=== PATIENT | female | born 1960 | race Caucasian/White ===

== ENCOUNTER 2022-04-15 18:41 | Inpatient (IN) ==
[2022-04-15] MEDS ORDERED: 0.9 % SODIUM CHLORIDE 1,000 ML IV ONE ×3 (18:49→22:02)
[2022-04-15 19:08] LABS: POC Calcium, Ionized 1.09 (1.16-1.32); POC Creatinine 3.3 (0.6-1.2); POC Potassium 5.6 (3.3-5.1)
[2022-04-15 19:33] LABS: Basophils # (Auto) 0.02 K/mcL (0.00-0.30); Basophils % (Auto) 0.4 % (0.0-2.0); Eosinophils # (Auto) 0.18 K/mcL (0.00-0.70); Eosinophils % (Auto) 3.2 % (0.0-7.0); Hematocrit 33.1 % (34.1-44.9); Hemoglobin 9.8 g/dL (11.2-15.7); Lymphocytes # (Auto) 1.72 K/mcL (1.50-4.80); Lymphocytes % (Auto) 30.7 % (15.5-49.0); Mean Cell Volume 87.1 fL (80.0-100.0); Mean Corpuscular HGB Conc 29.6 g/dL (31.0-36.0); Monocytes # (Auto) 0.58 K/mcL (0.10-0.90); Monocytes % (Auto) 10.4 % (1.0-12.0); Neutrophils % (Auto) 54.2 % (38.0-78.0); Platelet Count 150 K/mcL (140-440); Red Cell Distribution Width 24.4 % (11.5-14.5); WBC 5.6 K/mcL (4.5-11.0)
--- NOTE | 2022-04-15 19:56 | Emergency Department Note ---
HPI General Chief complaint: Recheck/Abnormal Lab/Rx Stated complaint: Recheck Labs Time Seen by Provider: 04/15/22 18:49 Source: patient Mode of arrival: ambulatory Limitations: no limitations History of Present Illness HPI Narrative: Narrative: 61-year-old female presents to the emergency department with her outdoor emergency care technician for evaluation of abnormal labs. The patient had labs drawn by her primary care provider this morning and was told to come to the emergency department this evening because her kidney function was poor. Patient complains of feeling tired and cold. She felt dizzy when she was stood up earlier, but does not feel dizzy at rest. She is blind in both eyes. She is currently on day 7 of Bactrim for an infection in the left great toe. Related Data Home Medications Medication Instructions Recorded Confirmed benztropine 1 mg tablet 0.5 mg PO BID 03/19/17 08/13/21 divalproex 250 mg tablet,extended 1,000 mg PO QHS 03/19/17 08/13/21 release 24 hr levothyroxine 25 mcg tablet 25 mcg PO DAILY 03/19/17 08/13/21 lisinopril 5 mg tablet 5 mg PO DAILY 03/19/17 08/13/21 prazosin 2 mg capsule 4 mg PO HS 03/19/17 08/13/21 ziprasidone HCl 40 mg capsule 40 mg PO DAILY 03/19/17 08/13/21 atorvastatin 40 mg tablet (Lipitor) 40 mg PO QHS 02/15/21 08/13/21 carvedilol 6.25 mg tablet (Coreg) 6.25 mg PO BID 02/15/21 08/13/21 metformin 750 mg tablet,extended 750 mg PO BID 02/15/21 08/13/21 release 24 hr sennosides 8.6 mg tablet (Natural 8.6 mg PO QDAY 02/15/21 08/13/21 Senna Laxative) alendronate 70 mg tablet (Fosamax) 70 mg PO QWEEK 08/13/21 08/13/21 aspirin 81 mg tablet,delayed 81 mg PO QDAY 08/13/21 08/13/21 release cetirizine 10 mg tablet (Zyrtec) 10 mg PO QDAY PRN 08/13/21 08/13/21 cholecalciferol (vitamin D3) 125 125 mcg PO QDAY 08/13/21 08/13/21 mcg (5,000 unit) capsule clobetasol 0.05 % topical cream 1 applic topical QDAY 08/13/21 08/13/21 ipratropium bromide 18 1 puff inhalation Q6H 08/13/21 08/13/21 mcg/actuation aerosol inhaler mirtazapine 30 mg tablet (Remeron) 30 mg PO QDAY 08/13/21 08/13/21 neomycin-polymyxin B-dexameth eye 1 applic ophthalmic (eye) QHS 08/13/21 08/13/21 ointment omeprazole 40 mg capsule,delayed 40 mg PO QDAY 08/13/21 08/13/21 release promethazine 25 mg/5 mL oral syrup mg PO 08/13/21 08/13/21 ziprasidone HCl 20 mg capsule 40 mg PO QHS 08/13/21 08/13/21 Previous Rx's Medication Instructions Recorded omeprazole 20 mg tablet,delayed 40 mg PO DAILY #30 tabs 02/15/21 release furosemide 20 mg tablet (Lasix) 20 mg PO QAM #7 tabs 01/17/22 Allergies Allergy/AdvReac Type Severity Reaction Status Date / Time Penicillins AdvReac Intermediate shakes Verified 04/15/22 18:46 Review of Systems ROS ROS Narrative: Narrative: Constitutional: Reports chills and weight change (30 pound weight loss over the past several months); Denies fever or sweats Eyes: Reports as per HPI ENT ED: Denies ear pain, throat pain, congestion or rhinorrhea Cardiovascular: Denies chest pain, palpitations, orthopnea or edema Respiratory: Denies shortness of breath or cough Gastrointestinal: Reports other (Decreased appetite); Denies abdominal pain, nausea, vomiting, diarrhea or constipation Genitourinary: Denies dysuria, urgency or frequency Neurological: Denies headache Endocrine: Reports fatigue PFSH Narrative Patient History Narrative: Narrative: Medical/Surgical/Family History All Active Problems (Updated 04/15/22 @ 19:58 by Radha Graham PA-C) Congestive heart failure (CHF) (Acute) Dehydration (Acute) Chest pain (Acute) Bilateral leg edema (Acute) Upper abdominal pain (Acute) 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) URI (upper respiratory infection) (Acute) Left ankle sprain (Acute) Acidosis, lactic (Acute) Acute bronchitis, viral (Acute) Lower abdominal pain (Acute) Chest pain, non-cardiac (Acute) Anxiety about health (Acute) Acute right hip pain (Acute) Osteoarthritis of right hip (Acute) Urinary tract infection (Acute) Constipation (Acute) Strain of calf muscle (Acute) Otitis media (Acute) Viral illness (Acute) Cough (Acute) COVID-19 (Acute) Hypoxia (Acute) Tachycardia (Acute) Weakness (Acute) Acute pain of left lower extremity (Acute) Localized edema (Acute) Excessive gas (Acute) Abdominal pain (Acute) Hypothyroidism, acquired (Chronic) Microcephaly (Chronic) Developmental disability (Chronic) Blindness (Chronic) Cognitive developmental delay (Chronic) Diabetes mellitus, type 2 (Chronic) Insomnia (Chronic) Hyperlipidemia (Chronic) GERD (gastroesophageal reflux disease) (Chronic) Hypertension, essential (Chronic) Family history of CHF (congestive heart failure) (Chronic) Chest pain (Acute) Anxiety (Acute) Medical History Bilateral leg edema Blindness Cognitive developmental delay Developmental disability Diabetes mellitus, type 2 Family history of CHF (congestive heart failure) GERD (gastroesophageal reflux disease) Hyperlipidemia Hypertension, essential Hypothyroidism, acquired Insomnia Microcephaly Upper abdominal pain Urinary tract infection UTI (urinary tract infection) Social History Smoking Status: Never smoker Exam Narrative Narrative: Narrative: General Limitations: no limitations General appearance: Present lethargic (Patient's care provider states this is a little worse than usual) Head Head: Present atraumatic and normocephalic ENT ENT: Present mucous membranes dry Neck Neck: Present full ROM; Absent lymphadenopathy Respiratory Respiratory: Present normal lung sounds bilaterally Cardiovascular Cardiovascular: Present regular rate and normal heart sounds Adbominal Abdominal: Present soft and normal bowel sounds; Absent tenderness Extremities Extremities: Present other (Feet are pale and cool. Dorsalis pedis pulses are diminished, but heard with Doppler.) Back Back: Present normal inspection Neurological Neurological: Present oriented X3 Skin Skin: Present warm (WNL) and dry Course Vital Signs Vital signs: Vital Signs Temperature 97.0 F 04/15/22 18:43 Pulse Rate 58 L 04/15/22 18:43 Respiratory Rate 18 04/15/22 18:43 Blood Pressure 96/63 04/15/22 18:43 Pulse Oximetry (%) 95 04/15/22 18:43 Oxygen Delivery Method 04/15/22 18:43 Temperature 97.0 F 04/15/22 18:43 Pulse Rate 58 L 04/15/22 18:43 Respiratory Rate 18 04/15/22 18:43 Blood Pressure 96/63 04/15/22 18:43 Pulse Oximetry (%) 95 04/15/22 18:43 Oxygen Delivery Method 04/15/22 18:43 MDM MDM Narrative Medical decision making narrative: Narrative: Patient's labs are checked. She appears dehydrated with elevated BUN and creatinine. She is treated with IV fluids. Chem-8 will be repeated after IV fluids. I discussed the patient with Dr. Ayala who will review her follow-up labs. Please refer to his dictation for disposition regarding this patient. Lab Data Result diagrams: 04/15/22 18:56 Labs: Lab Results 04/15/22 04/15/22 Range/Units 18:56 19:05 WBC 5.6 (4.5-11.0) K/mcL RBC 3.80 (3.59-5.38) M/mcL Hgb 9.8 L (11.2-15.7) g/dL Hct 33.1 L (34.1-44.9) % POC Hct 30.0 L (36-48) MCV 87.1 (80.0-100.0) fL MCH 25.8 L (26.0-34.0) pg MCHC 29.6 L (31.0-36.0) g/dL RDW 24.4 H (11.5-14.5) % Plt Count 150 (140-440) K/mcL MPV 11.0 H (7.4-10.4) fL Immature Gran % (Auto) 1.1 H (0.0-0.5) % Neut % (Auto) 54.2 (38.0-78.0) % Lymph % (Auto) 30.7 (15.5-49.0) % [place] % (Auto) 10.4 (1.0-12.0) % Eos % (Auto) 3.2 (0.0-7.0) % Baso % (Auto) 0.4 (0.0-2.0) % Lymph # (Auto) 1.72 (1.50-4.80) K/mcL [place] # (Auto) 0.58 (0.10-0.90) K/mcL Eos # (Auto) 0.18 (0.00-0.70) K/mcL Baso # (Auto) 0.02 (0.00-0.30) K/mcL Immature Gran # 0.06 H (0.00-0.05) K/mcl Absolute Neutrophils 3.10 (1.80-8.00) K/mcL POC Sodium 135 (133-145) POC Potassium 5.6 H (3.3-5.1) POC Chloride 107 (96-108) POC Total CO2 19.0 L (22-30) POC BUN 69 H (6-20) POC Creatinine 3.3 H (0.6-1.2) POC Glucose 67 L (70-105) POC WB Ioniz Calcium 1.09 L (1.16-1.32) Discharge Plan Patient/Caregiver Discharge Instructions Pt seen by REHABILITATION CENTER MANAGER/PA only: No Clinical Impression: Dehydration Patient Disposition: Still a Patient Follow up with: Marie Mclaughlin ARNP [Primary Care Provider] - Prescriptions: No Action omeprazole 20 mg tablet,delayed release (DR/EC) 40 mg PO DAILY Qty: 30 0RF atorvastatin [Lipitor] 40 mg tablet 40 mg PO QHS metformin 750 mg tablet extended release 24 hr 750 mg PO BID carvedilol [Coreg] 6.25 mg tablet 6.25 mg PO BID Rx Instructions: must administer with a meal/food sennosides [Natural Senna Laxative] 8.6 mg tablet 8.6 mg PO QDAY alendronate [Fosamax] 70 mg tablet 70 mg PO QWEEK omeprazole 40 mg capsule,delayed release(DR/EC) 40 mg PO QDAY aspirin 81 mg tablet,delayed release (DR/EC) 81 mg PO QDAY cetirizine [Zyrtec] 10 mg tablet 10 mg PO QDAY PRN neomycin-polymyxin B-dexameth Ointment 1 applic ophthalmic (eye) QHS cholecalciferol (vitamin D3) 125 mcg (5,000 unit) capsule 125 mcg PO QDAY mirtazapine [Remeron] 30 mg tablet 30 mg PO QDAY clobetasol 0.05 % cream 1 applic topical QDAY ipratropium bromide 18 mcg/actuation aerosol 1 puff inhalation Q6H promethazine 25 mg/5 mL syrup PO lisinopril 5 MG tablet 5 mg PO DAILY levothyroxine 25 MCG tablet 25 mcg PO DAILY benztropine 1 MG tablet 0.5 mg PO BID ziprasidone HCl 40 MG capsule 40 mg PO DAILY prazosin 2 MG capsule 4 mg PO HS divalproex 250 MG tablet extended release 24 hr 1,000 mg PO QHS ziprasidone HCl 20 mg capsule 40 mg PO QHS furosemide [Lasix] 20 mg tablet 20 mg PO QAM Qty: 7 0RF
[2022-04-15 20:37] LABS: POC Calcium, Ionized 1.03 (1.16-1.32); POC Creatinine 3.1 (0.6-1.2)
--- NOTE | 2022-04-15 20:45 | Emergency Department Note ---
Course Course Course Narrative: Patient was evaluated for generalized weakness and abnormal labs. Patient was found to be in acute kidney injury with hyperkalemia. Most likely secondary to dehydration. Patient was given 2 bags of IV fluids and her creatinine did improve from 3.3 down to 2.8 and her potassium also came down a little bit. Patient still appears dehydrated. Believe patient will benefit from admission to the hospital with IV rehydration and see how her kidney function performs. Case was discussed with hospitalist who has agreed to admit the patient. Consultations Consultation #1: Request for hospitalist consultation requested Time: 21:49 Consultation #2: Case discussed with hospitalist who has agreed to admit the patient for acute kidney injury secondary to dehydration Time: 21:56 Vital Signs Vital signs: Vital Signs Temperature 97.0 F 04/15/22 18:43 Pulse Rate 58 L 04/15/22 18:43 Respiratory Rate 18 04/15/22 18:43 Blood Pressure 96/63 04/15/22 18:43 Pulse Oximetry (%) 95 04/15/22 18:43 Oxygen Delivery Method 04/15/22 18:43 Temperature 97.0 F 04/15/22 18:43 Pulse Rate 81 04/15/22 20:54 Respiratory Rate 18 04/15/22 18:43 Blood Pressure 83/53 04/15/22 20:32 Pulse Oximetry (%) 99 04/15/22 20:54 Oxygen Delivery Method 04/15/22 18:43 [facility] MDM Narrative Medical decision making narrative: Narrative: Differential Diagnosis Differential Diagnosis: Dehydration, acute kidney injury Medical Records Medical records reviewed: Yes I reviewed the patient's medical records. Lab Data Lab results reviewed: Yes I reviewed the patient's lab results. Result diagrams: 04/15/22 18:56 Labs: Lab Results 04/15/22 04/15/22 04/15/22 Range/Units 18:56 19:05 20:36 WBC 5.6 (4.5-11.0) K/mcL RBC 3.80 (3.59-5.38) M/mcL Hgb 9.8 L (11.2-15.7) g/dL Hct 33.1 L (34.1-44.9) % POC Hct 30.0 L 25.0 L (36-48) MCV 87.1 (80.0-100.0) fL MCH 25.8 L (26.0-34.0) pg MCHC 29.6 L (31.0-36.0) g/dL RDW 24.4 H (11.5-14.5) % Plt Count 150 (140-440) K/mcL MPV 11.0 H (7.4-10.4) fL Immature Gran % (Auto) 1.1 H (0.0-0.5) % Neut % (Auto) 54.2 (38.0-78.0) % Lymph % (Auto) 30.7 (15.5-49.0) % [place] % (Auto) 10.4 (1.0-12.0) % Eos % (Auto) 3.2 (0.0-7.0) % Baso % (Auto) 0.4 (0.0-2.0) % Lymph # (Auto) 1.72 (1.50-4.80) K/mcL [place] # (Auto) 0.58 (0.10-0.90) K/mcL Eos # (Auto) 0.18 (0.00-0.70) K/mcL Baso # (Auto) 0.02 (0.00-0.30) K/mcL Immature Gran # 0.06 H (0.00-0.05) K/mcl Absolute Neutrophils 3.10 (1.80-8.00) K/mcL POC Sodium 135 136 (133-145) POC Potassium 5.6 H 5.0 (3.3-5.1) POC Chloride 107 109 H (96-108) POC Total CO2 19.0 L 17.0 L (22-30) POC BUN 69 H 66 H (6-20) POC Creatinine 3.3 H 3.1 H (0.6-1.2) POC Glucose 67 L 60 L (70-105) POC WB Ioniz Calcium 1.09 L 1.03 L (1.16-1.32) 04/15/22 Range/Units 21:43 WBC (4.5-11.0) K/mcL RBC (3.59-5.38) M/mcL Hgb (11.2-15.7) g/dL Hct (34.1-44.9) % POC Hct 26.0 L (36-48) MCV (80.0-100.0) fL MCH (26.0-34.0) pg MCHC (31.0-36.0) g/dL RDW (11.5-14.5) % Plt Count (140-440) K/mcL MPV (7.4-10.4) fL Immature Gran % (Auto) (0.0-0.5) % Neut % (Auto) (38.0-78.0) % Lymph % (Auto) (15.5-49.0) % [place] % (Auto) (1.0-12.0) % Eos % (Auto) (0.0-7.0) % Baso % (Auto) (0.0-2.0) % Lymph # (Auto) (1.50-4.80) K/mcL [place] # (Auto) (0.10-0.90) K/mcL Eos # (Auto) (0.00-0.70) K/mcL Baso # (Auto) (0.00-0.30) K/mcL Immature Gran # (0.00-0.05) K/mcl Absolute Neutrophils (1.80-8.00) K/mcL POC Sodium 137 (133-145) POC Potassium 5.4 H (3.3-5.1) POC Chloride 110 H (96-108) POC Total CO2 18.0 L (22-30) POC BUN 64 H (6-20) POC Creatinine 2.8 H (0.6-1.2) POC Glucose 83 (70-105) POC WB Ioniz Calcium 1.07 L (1.16-1.32) EKG Data EKG #1: EKG attestation: Yes I reviewed and interpreted this EKG. EKG shows normal: sinus rhythm Rate: normal (84) Rhythm: NSR [place]/QRS: normal Heart block present: None ST segment elevation in: None ST segment depression in: None QTc: normal QRS morphology: Present normal Interpretation: no acute changes Discharge Plan Patient/Caregiver Discharge Instructions Pt seen by DRAWBRIDGE OPERATOR/PA only: No Clinical Impression: Acute kidney injury, Dehydration, Acute hyperkalemia Patient Disposition: Xfer As Inpt ([facility]) Condition: Fair Follow up with: Marie Mclaughlin ARNP [Primary Care Provider] - Prescriptions: No Action omeprazole 20 mg tablet,delayed release (DR/EC) 40 mg PO DAILY Qty: 30 0RF atorvastatin [Lipitor] 40 mg tablet 40 mg PO QHS metformin 750 mg tablet extended release 24 hr 750 mg PO BID carvedilol [Coreg] 6.25 mg tablet 6.25 mg PO BID Rx Instructions: must administer with a meal/food sennosides [Natural Senna Laxative] 8.6 mg tablet 8.6 mg PO QDAY alendronate [Fosamax] 70 mg tablet 70 mg PO QWEEK omeprazole 40 mg capsule,delayed release(DR/EC) 40 mg PO QDAY aspirin 81 mg tablet,delayed release (DR/EC) 81 mg PO QDAY cetirizine [Zyrtec] 10 mg tablet 10 mg PO QDAY PRN neomycin-polymyxin B-dexameth Ointment 1 applic ophthalmic (eye) QHS cholecalciferol (vitamin D3) 125 mcg (5,000 unit) capsule 125 mcg PO QDAY mirtazapine [Remeron] 30 mg tablet 30 mg PO QDAY clobetasol 0.05 % cream 1 applic topical QDAY ipratropium bromide 18 mcg/actuation aerosol 1 puff inhalation Q6H promethazine 25 mg/5 mL syrup PO lisinopril 5 MG tablet 5 mg PO DAILY levothyroxine 25 MCG tablet 25 mcg PO DAILY benztropine 1 MG tablet 0.5 mg PO BID ziprasidone HCl 40 MG capsule 40 mg PO DAILY prazosin 2 MG capsule 4 mg PO HS divalproex 250 MG tablet extended release 24 hr 1,000 mg PO QHS ziprasidone HCl 20 mg capsule 40 mg PO QHS furosemide [Lasix] 20 mg tablet 20 mg PO QAM Qty: 7 0RF
[2022-04-15 21:47] LABS: POC Calcium, Ionized 1.07 (1.16-1.32); POC Creatinine 2.8 (0.6-1.2); POC Potassium 5.4 (3.3-5.1)
[2022-04-15] MEDS ORDERED: ONDANSETRON 4 MG/2 ML VIAL IV PRN (23:19)
[2022-04-15] MEDS ORDERED: ACETAMINOPHEN 325 MG TABLET PO PRN (23:19)
[2022-04-15] MEDS: LACTATED RINGERS 1,000 ML IV SCH (23:22)
[2022-04-16] MEDS: 0.9 % SODIUM CHLORIDE 10 ML SYRINGE IV SCH ×2 (04:54→12:11)
[2022-04-16 07:01] LABS: Blood Urea Nitrogen 53 mg/dL (6-20); Calcium 7.8 mg/dL (8.6-10.4); Carbon Dioxide 20 mmol/L (22-30); Chloride 110 mmol/L (96-108); Glomerular Filtration Rate 21; Glucose 82 mg/dL (70-105); Phosphorous 2.9 mg/dL (2.5-4.5)
[2022-04-16] MEDS: DOCUSATE SODIUM 100 MG CAPSULE PO SCH ×2 (10:03→21:15)
[2022-04-16] MEDS: HEPARIN 5,000 UNIT/ML VIAL SQ SCH ×2 (10:03→21:16)
--- NOTE | 2022-04-16 11:03 | Internal Med History&Physical ---
HPI History of Present Illness Patient information: Note initiated : 04/16/22 at 10:57 am Service Date, if different from initiated Date: [] Patient: Antonia Leo a 61 y/o F admitted on 04/15/22 for Recheck Labs. Chief Complaint: [Abnormal labs] Chief complaint: CRHISTIAN History of present illness: Ms. Leo is a 61 year old F with a complex past medical history significant for microcephaly, blindness, cognitive disability, schizophrenia, DM2, congestive heart failure, hypothyroidism, and hypertension who presents to the hospital with abnormal labs. It was suggested she go to the ER for further management and evaluation. The patient overall is a poor historian and history is mainly obtained secondhand from staff and from chart review. The patient was recently started on Bactrim for suspected UTI, is on lisinopril, and multiple diuretics at home. Unfortunately she has now developed acute kidney injury where she was found to have a creatinine of 2.9. Her baseline creatinine is close to 0.9. The offending agents have been discontinued and held. She has been gently hydrated with IV fluids and the hospitalist service has been asked admit the patient for further management and evaluation of her drug-induced acute kidney injury. 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) URI (upper respiratory infection) (Acute) Left ankle sprain (Acute) Acidosis, lactic (Acute) Acute bronchitis, viral (Acute) Lower abdominal pain (Acute) Chest pain, non-cardiac (Acute) Anxiety about health (Acute) Acute right hip pain (Acute) Osteoarthritis of right hip (Acute) Urinary tract infection (Acute) Constipation (Acute) Strain of calf muscle (Acute) Otitis media (Acute) Viral illness (Acute) Cough (Acute) COVID-19 (Acute) Hypoxia (Acute) Tachycardia (Acute) Weakness (Acute) Acute pain of left lower extremity (Acute) Localized edema (Acute) Excessive gas (Acute) Abdominal pain (Acute) Hypothyroidism, acquired (Chronic) Microcephaly (Chronic) Developmental disability (Chronic) Blindness (Chronic) Cognitive developmental delay (Chronic) Diabetes mellitus, type 2 (Chronic) Insomnia (Chronic) Hyperlipidemia (Chronic) GERD (gastroesophageal reflux disease) (Chronic) Hypertension, essential (Chronic) Family history of CHF (congestive heart failure) (Chronic) Chest pain (Acute) Anxiety (Acute) Medical History Bilateral leg edema Blindness Cognitive developmental delay Developmental disability Diabetes mellitus, type 2 Family history of CHF (congestive heart failure) GERD (gastroesophageal reflux disease) Hyperlipidemia Hypertension, essential Hypothyroidism, acquired Insomnia Microcephaly Upper abdominal pain Urinary tract infection UTI (urinary tract infection) MEDS/ALLERGIES Home Medications and Allergies Home Medications Medication Instructions Recorded Confirmed Type benztropine 1 mg tablet 0.5 mg PO BID 03/19/17 04/15/22 History divalproex 250 mg tablet,extended 1,000 mg PO QHS 03/19/17 04/15/22 History release 24 hr levothyroxine 25 mcg tablet 25 mcg PO DAILY 03/19/17 04/15/22 History lisinopril 5 mg tablet 5 mg PO DAILY 03/19/17 04/15/22 History prazosin 2 mg capsule 2 mg PO HS 03/19/17 04/15/22 History ziprasidone HCl 40 mg capsule 40 mg PO DAILY 03/19/17 04/15/22 History atorvastatin 40 mg tablet (Lipitor) 40 mg PO QHS 02/15/21 04/15/22 History carvedilol 6.25 mg tablet (Coreg) 12.5 mg PO BID 02/15/21 04/15/22 History metformin 750 mg tablet,extended 750 mg PO QAM 02/15/21 04/15/22 History release 24 hr omeprazole 20 mg tablet,delayed 40 mg PO DAILY #30 tabs 02/15/21 04/15/22 Rx release sennosides 8.6 mg tablet (Natural 8.6 mg PO Q2D 02/15/21 04/15/22 History Senna Laxative) alendronate 70 mg tablet (Fosamax) 70 mg PO QWEEK 08/13/21 04/15/22 History aspirin 81 mg tablet,delayed 81 mg PO QDAY 08/13/21 04/15/22 History release cetirizine 10 mg tablet (Zyrtec) 10 mg PO QDAY 08/13/21 04/15/22 History cholecalciferol (vitamin D3) 125 125 mcg PO QDAY 08/13/21 04/15/22 History mcg (5,000 unit) capsule clobetasol 0.05 % topical cream 1 applic topical QDAY 08/13/21 04/15/22 History mirtazapine 30 mg tablet (Remeron) 30 mg PO QDAY 08/13/21 04/15/22 History ziprasidone HCl 20 mg capsule 20 mg PO QHS 08/13/21 04/15/22 History furosemide 20 mg tablet (Lasix) 20 mg PO QAM #7 tabs 01/17/22 04/15/22 Rx colchicine 0.6 mg tablet 1 tab PO QDAY 04/15/22 04/15/22 History ferrous sulfate 325 mg (65 mg 1 tab PO QDAY 04/15/22 04/15/22 History iron) tablet,delayed release spironolactone 25 mg tablet 0.5 tab PO QDAY 04/15/22 04/15/22 History Allergies Allergy/AdvReac Type Severity Reaction Status Date / Time Penicillins AdvReac Intermediate shakes Verified 04/15/22 18:46 EXAM Constitutional Vitals: Temp Pulse Resp BP Pulse Ox O2 Del Method 96.6 F L 84 20 107/72 89 L 04/16/22 08:00 04/16/22 08:00 04/16/22 08:00 04/16/22 08:00 04/16/22 08:00 04/16/22 08:50 General appearance: average body habitus Head Head exam: Present atraumatic, normal inspection and normocephalic Eye Eye exam: Present EOMI, normal appearance and PERRL; Absent conjunctival injection ENT ENT exam: Present normal exam; Absent mucous membranes dry Neck Neck exam: Present full ROM; Absent lymphadenopathy Respiratory Respiratory exam: Present normal respiratory exam and CTAB; Absent decreased breath sounds, respiratory distress or wheezes Cardiovascular Cardiovascular exam: Present normal rate and rhythm and RRR; Absent JVD GI/Abdominal GI/Abdominal exam: Present normal bowel sounds and soft; Absent diminished bowel sounds, distended, guarding, mass, rebound or tenderness Neurological Exam Neurological exam: Present alert, CN II-XII intact and oriented X3 Psychiatric Psychiatric exam: Present normal affect and normal mood Skin Skin exam: Present intact and warm; Absent erythema, pallor, petechiae or rash DATA Data Completed and Pending Labs: Labs from last 24 hours 04/16/22 04/15/22 04/15/22 05:31 21:43 20:36 WBC RBC Hgb Hct POC Hct 26.0 L 25.0 L MCV MCH MCHC RDW Plt Count MPV Immature Gran % (Auto) Neut % (Auto) Lymph % (Auto) [place] % (Auto) Eos % (Auto) Baso % (Auto) Lymph # (Auto) [place] # (Auto) Eos # (Auto) Baso # (Auto) Immature Gran # Absolute Neutrophils POC Sodium 137 136 Sodium 140 POC Potassium 5.4 H 5.0 Potassium 4.6 POC Chloride 110 H 109 H Chloride 110 H Carbon Dioxide 20 L POC Total CO2 18.0 L 17.0 L Anion Gap 10.0 POC BUN 64 H 66 H BUN 53 H Creatinine 2.4 H POC Creatinine 2.8 H 3.1 H GFR Calculation 21 Glucose 82 POC Glucose 83 60 L Calcium 7.8 L POC WB Ioniz Calcium 1.07 L 1.03 L Phosphorus 2.9 Magnesium 1.7 04/15/22 04/15/22 19:05 18:56 WBC 5.6 RBC 3.80 Hgb 9.8 L Hct 33.1 L POC Hct 30.0 L MCV 87.1 MCH 25.8 L MCHC 29.6 L RDW 24.4 H Plt Count 150 MPV 11.0 H Immature Gran % (Auto) 1.1 H Neut % (Auto) 54.2 Lymph % (Auto) 30.7 [place] % (Auto) 10.4 Eos % (Auto) 3.2 Baso % (Auto) 0.4 Lymph # (Auto) 1.72 [place] # (Auto) 0.58 Eos # (Auto) 0.18 Baso # (Auto) 0.02 Immature Gran # 0.06 H Absolute Neutrophils 3.10 POC Sodium 135 Sodium POC Potassium 5.6 H Potassium POC Chloride 107 Chloride Carbon Dioxide POC Total CO2 19.0 L Anion Gap POC BUN 69 H BUN Creatinine POC Creatinine 3.3 H GFR Calculation Glucose POC Glucose 67 L Calcium POC WB Ioniz Calcium 1.09 L Phosphorus Magnesium A/P Assessment and plan (1) Acute kidney injury: Status: Acute (2) Congestive heart failure (CHF): Status: Acute (3) Acute hyperkalemia: Status: Acute (4) Developmental disability: Status: Chronic (5) Diabetes mellitus, type 2: Status: Chronic (6) Blindness: Status: Chronic Narrative A/P Narrative: The patient likely developed acute interstitial nephritis from her Bactrim that was exacerbated by her underlying diuretics and lisinopril. We will continue to hydrate her with IV fluids and monitor serial BMP daily. Her home medication list has been reconciled and restarted today. PT will work with the patient this morning. Social work and case management will work on disposition as she lives in the community home. Time Spent With Patient Time: Total time spent is greater than 50% in coordination of care (as documented) at patient's floor/unit and/or counseling patient: Total time spent with greater than 50% in coordination of care (as documented) at patient's floor/unit and/or counseling patient:: Greater than 70 minutes QUALITY VTE Deep Vein Thrombosis/Pulmonary Embolism Present on Admission: No
[2022-04-16] MEDS: LACTATED RINGERS 1,000 ML IV SCH ×2 (12:10→22:44)
[2022-04-16] MEDS ORDERED: LACTATED RINGERS 500 ML IV ONE (13:07)
--- NOTE | 2022-04-16 14:00 | Internal Med Progress Note ---
SUBJECTIVE Subjective Patient information: Note initiated : 04/16/22 at 1:53 pm Service Date, if different from initiated Date: [] Patient: Antonia Leo a 61 y/o F admitted on 04/15/22 for Recheck Labs. Chief Complaint: [] Interval history: History of present illness: Ms. Leo is a 61 year old F with a complex past medical history significant for microcephaly, blindness, cognitive disability, schizophrenia, DM2, congestive heart failure, hypothyroidism, and hypertension who presents to the hospital with abnormal labs. It was suggested she go to the ER for further management and evaluation. The patient overall is a poor historian and history is mainly obtained secondhand from staff and from chart review. The patient was recently started on Bactrim for suspected UTI, is on lisinopril, and multiple diuretics at home. Unfortunately she has now developed acute kidney injury where she was found to have a creatinine of 2.9. Her baseline creatinine is close to 0.9. The offending agents have been discontinued and held. She has been gently hydrated with IV fluids and the hospitalist service has been asked admit the patient for further management and evaluation of her drug-induced acute kidney injury. 04/17 Constitutional Vitals: Vital Signs Temp Pulse Resp BP Pulse Ox O2 Del Method 97.6 F 100 H 20 82/48 93 04/16/22 11:52 04/16/22 11:52 04/16/22 11:52 04/16/22 13:01 04/16/22 11:52 04/16/22 11:52 Period Temp Pulse Resp BP Sys/Duff Pulse Ox O2 Del Method O2 Flow Rate Last 24 Hr 96.4 F-97.6 F 58-100 -22 70-107/48-72 89-99 Room Air-Room Air Intake and Output 04/15/22 04/16/22 04/16/22 21:59 05:59 13:59 Intake Total 19990 1080 Output Total 500 Balance 1999 1050 580 Weight 61.689 kg 71.985 kg Intake & Output: Intake & Output 04/15/22 04/16/22 04/16/22 21:59 05:59 13:59 Intake Total 1999 1050 1080 Output Total 500 Balance 1999 1050 580 Weight 61.689 kg 71.985 kg Intake: IV 1999 1000 960 Sodium Chloride 0.9% 1,000 ml @ 2000 1000 Wide Open IV BOL[facility] ONE Rx#: [id number] Lactated Ringers 1,000 ml @ 75 960 mls/hr IV .[id number] [facility] Rx#: [id number] Oral 50 120 Output: Void Amount 500 Other: Meal Breakfast Percent of Meal Consumed 75% Feeding Ability Assist with Tray Set Up Urine Appearance Clear Urine Color Bright Yellow Exam: General: Alert, Awake, No acute Distress Eyes/N/T: EOMI, Head/Neck: neck supple, CV: RRR, No murmurs, Pulm: Clear b/l, no wheezing/rhonchi/rales Abd: soft, nontender, +BS x4 Ext: no clubbing/cyanosis/edema Neuro: Alert, no focal deficits, moves all extremities, Skin: warm/dry OBJ DATA Labs CBC & Chem 7: 04/15/22 18:56 04/16/22 05:31 Labs: Abnormal Lab Results 04/16/22 04/15/22 04/15/22 05:31 21:43 20:36 Hgb Hct POC Hct 26.0 L 25.0 L MCH MCHC RDW MPV Immature Gran % (Auto) Immature Gran # POC Potassium 5.4 H POC Chloride 110 H 109 H Chloride 110 H Carbon Dioxide 20 L POC Total CO2 18.0 L 17.0 L POC BUN 64 H 66 H BUN 53 H Creatinine 2.4 H POC Creatinine 2.8 H 3.1 H POC Glucose 60 L Calcium 7.8 L POC WB Ioniz Calcium 1.07 L 1.03 L 04/15/22 04/15/22 19:05 18:56 Hgb 9.8 L Hct 33.1 L POC Hct 30.0 L MCH 25.8 L MCHC 29.6 L RDW 24.4 H MPV 11.0 H Immature Gran % (Auto) 1.1 H Immature Gran # 0.06 H POC Potassium 5.6 H POC Chloride Chloride Carbon Dioxide POC Total CO2 19.0 L POC BUN 69 H BUN Creatinine POC Creatinine 3.3 H POC Glucose 67 L Calcium POC WB Ioniz Calcium 1.09 L Meds: Medications Acetaminophen (Acetaminophen 325 Mg Tablet) 650 mg PO Q6HP PRN; Protocol PRN Reason: Per Pain Protocol/Fever > 101 Aspirin (Aspirin 81 Mg Tab.Chew) 81 mg PO DAILY [facility] Atorvastatin Calcium (Atorvastatin 40 Mg Tablet) 40 mg PO QHS [facility] Benztropine Mesylate (Benztropine 1 Mg Tablet) 0.5 mg PO BID [facility] Carvedilol (Carvedilol 12.5 Mg Tablet) 12.5 mg PO BIDCC [facility] Clobetasol Propionate (Clobetasol Propionate 1 Dose Tube) 1 dose TOPICAL QDAY [facility] Diagnostic Test (Pha) (Accu-Chek 1 Each Strip) 1 each FS ACHS [facility] Last Admin: 04/16/22 12:10 Dose: 1 each Divalproex Sodium (Divalproex Sodium 250 Mg Tablet) 1,000 mg PO QHS [facility] Docusate Sodium (Docusate Sodium 100 Mg Capsule) 100 mg PO BID [facility] Last Admin: 04/16/22 10:03 Dose: 100 mg Heparin Sodium (Porcine) (Heparin 5,000 Unit/Ml Vial) 5,000 unit SQ Q12 [facility] Last Admin: 04/16/22 10:03 Dose: 5,000 unit Lactated Ringer's (Lactated Ringers) 1,000 mls @ 75 mls/hr IV .[id number] [facility] Last Admin: 04/16/22 12:10 Dose: 75 mls/hr Levothyroxine Sodium (Levothyroxine 25 Mcg Tablet) 25 mcg PO QAMAC [facility] Mirtazapine (Mirtazapine 15 Mg Tablet) 30 mg PO HS [facility] Omeprazole (Omeprazole 20 Mg Capsule) 40 mg PO ACB [facility] Ondansetron HCl (Ondansetron 4 Mg/2 Ml Vial) 4 mg IV Q6HP PRN PRN Reason: Nausea And Vomiting Ziprasidone Hcl 20 (Mg Capsule) 1 dose PO QHS [facility] Ziprasidone Hcl 40 (Mg Capsule) 1 dose PO DAILY [facility] Prazosin HCl (Prazosin 1 Mg Capsule) 2 mg PO HS [facility] Senna (Sennosides 1 Tablet) 2 tab PO HS [facility] Sodium Chloride (0.9 % Sodium Chloride 10 Ml Syringe) 10 ml IV Q8 [facility] Last Admin: 04/16/22 12:11 Dose: Not Given A/P Narrative A/P Narrative: A: *CHRISTIAN on CKD II: likely 2/2 bactrim compounded by ACEI/Diuretics -improving *Hyperkalemia: resolved *Volume depletion: *HTN/HLD: on BB/ACEI, lasix/aldactone *DM 2: *Cognitive impairment/blindness/microcephaly/developmental disability: *Schizophrenia: *Anemia: *Hypothyroidism: *GERD: P: -IVF -hold ACEI/diuretics, d/c bactrim -monitor UOP -SSI, hold metformin -PT/OT -ppx:heparin /Home PPI Time Spent With Patient Time: Total time spent is greater than 50% in coordination of care (as documented) at patient's floor/unit and/or counseling patient: QUALITY VTE Deep Vein Thrombosis/Pulmonary Embolism Present on Admission: No
[2022-04-16 15:15] LABS: Appearance,Urine Clear (Clear); Bilirubin,Urine Negative (Negative); Color,Urine Yellow; Culture Indicated,Urine No; Glucose,Urine (UA) Negative (Negative); Ketones,Urine Negative (Negative); Leukocyte Esterase,Urine Negative /uL (Negative); Nitrate,Urine Negative (Negative); Protein,Urine Negative (Negative); Urine Blood Negative ery/mcL (Negative); Urobilinogen,Urine Normal
[2022-04-16] MEDS: CARVEDILOL 12.5 MG TABLET PO SCH (16:47)
[2022-04-16] MEDS: BENZTROPINE 1 MG TABLET PO SCH (21:15)
[2022-04-16] MEDS: MIRTAZAPINE 15 MG TABLET PO SCH (21:15)
[2022-04-16] MEDS: SENNOSIDES 1 TABLET PO SCH (21:15)
[2022-04-16] MEDS: ATORVASTATIN 40 MG TABLET PO SCH (21:15)
[2022-04-16] MEDS: DIVALPROEX SODIUM 250 MG TABLET PO SCH (21:15)
[2022-04-16] MEDS: PRAZOSIN 1 MG CAPSULE PO SCH (21:16)
[2022-04-17] MEDS: 0.9 % SODIUM CHLORIDE 10 ML SYRINGE IV SCH ×4 (01:09→22:05)
[2022-04-17] MEDS: LACTATED RINGERS 1,000 ML IV SCH (04:05)
[2022-04-17 06:32] LABS: Basophils # (Auto) 0.01 K/mcL (0.00-0.30); Basophils % (Auto) 0.3 % (0.0-2.0); Eosinophils # (Auto) 0.13 K/mcL (0.00-0.70); Eosinophils % (Auto) 3.6 % (0.0-7.0); Hematocrit 27.7 % (34.1-44.9); Hemoglobin 8.6 g/dL (11.2-15.7); Lymphocytes # (Auto) 1.61 K/mcL (1.50-4.80); Lymphocytes % (Auto) 45.1 % (15.5-49.0); Mean Cell Volume 84.2 fL (80.0-100.0); Mean Platelet Volume 10.3 fL (7.4-10.4); Monocytes # (Auto) 0.34 K/mcL (0.10-0.90); Monocytes % (Auto) 9.5 % (1.0-12.0); Neutrophils % (Auto) 40.4 % (38.0-78.0); Platelet Count 128 K/mcL (140-440); RBC 3.29 M/mcL (3.59-5.38); Red Cell Distribution Width 24.8 % (11.5-14.5); WBC 3.6 K/mcL (4.5-11.0)
[2022-04-17 07:00] LABS: ALT/SGPT 51 U/L (<40); AST/SGOT 47 U/L (<32); Albumin 2.9 gm/dL (3.2-5.2); Albumin/Globulin Ratio 1.3 (1.0-2.3); Alkaline Phosphatase 53 U/L (39-117); Bilirubin,Direct < 0.2 mg/dL (0-0.3); Bilirubin,Total 0.2 mg/dL (0.1-1.0); Blood Urea Nitrogen 32 mg/dL (6-20); Calcium 8.5 mg/dL (8.6-10.4); Carbon Dioxide 22 mmol/L (22-30); Chloride 112 mmol/L (96-108); Globulin 2.3 gm/dL (2.2-3.7); Glomerular Filtration Rate 35; Glucose 81 mg/dL (70-105); Lactate Dehydrogenase 159 U/L (135-225); Phosphorous 2.7 mg/dL (2.5-4.5); Triglycerides 207 mg/dL (<150); Uric Acid 5.6 mg/dL (2.5-8.0)
[2022-04-17] MEDS: LEVOTHYROXINE 25 MCG TABLET PO SCH (07:19)
[2022-04-17] MEDS: OMEPRAZOLE 20 MG CAPSULE PO SCH (07:19)
--- NOTE | 2022-04-17 08:11 | Internal Med Progress Note ---
SUBJECTIVE Subjective Patient information: Note initiated : 04/17/22 at 8:09 am Service Date, if different from initiated Date: [] Patient: Antonia Leo a 61 y/o F admitted on 04/15/22 for Recheck Labs. Chief Complaint: [] Interval history: History of present illness: Ms. Leo is a 61 year old F with a complex past medical history significant for microcephaly, blindness, cognitive disability, schizophrenia, DM2, congestive heart failure, hypothyroidism, and hypertension who presents to the hospital with abnormal labs. It was suggested she go to the ER for further management and evaluation. The patient overall is a poor historian and history is mainly obtained secondhand from staff and from chart review. The patient was recently started on Bactrim for suspected UTI, is on lisinopril, and multiple diuretics at home. Unfortunately she has now developed acute kidney injury where she was found to have a creatinine of 2.9. Her baseline creatinine is close to 0.9. The offending agents have been discontinued and held. She has been gently hydrated with IV fluids and the hospitalist service has been asked admit the patient for further management and evaluation of her drug-induced acute kidney injury. 04/17 Has occasional cough from her recent cold otherwise no new complaints overnight events. Started home beta-soren. Creatinine still elevated but improving. Mild transaminitis. Review of Systems: denies headache/fever/chills/nausea/vomiting/chest or abdominal pain/cough/dyspnea/diarrhea. Otherwise see above. Constitutional Vitals: Vital Signs Temp Pulse Resp BP Pulse Ox O2 Del Method 97.6 F 89 18 128/80 94 04/17/22 07:17 04/17/22 07:17 04/17/22 07:17 04/17/22 07:17 04/17/22 07:17 04/17/22 07:17 Period Temp Pulse Resp BP Sys/Duff Pulse Ox O2 Del Method O2 Flow Rate Last 24 Hr 97.4 F-98.0 F 80-100 14-20 82-149/48-102 90-96 Room Air-Room Air Intake and Output 04/16/22 04/17/22 04/17/22 21:59 05:59 13:59 Intake Total 600 1383 Output Total 300 751 Balance 300 632 Weight 72.756 kg Intake & Output: Intake & Output 04/16/22 04/17/22 04/17/22 21:59 05:59 13:59 Intake Total 600 1383 Output Total 300 751 Balance 300 632 Weight 72.756 kg Intake: IV 793 Lactated Ringers 1,000 ml @ 75 793 mls/hr IV .[id number] [facility] Rx#: [id number] Oral 600 590 Output: Void Amount 300 750 # of times incontinent of urine 1 Other: Meal Dinner Percent of Meal Consumed 75% Feeding Ability Assist with Tray Set Up Urine Appearance Clear Clear Urine Color Bright Yellow Bright Yellow Urine Odor Strong # Voids 0 Exam: General: Alert, Awake, No acute Distress Eyes/N/T: EOMI, Head/Neck: neck supple, CV: Tacky but regular, No murmurs, Pulm: Clear b/l, no wheezing/rhonchi/rales Abd: soft, nontender, +BS x4 Ext: no clubbing/cyanosis, 1+ b/l LE edema Neuro: Alert, no focal deficits, moves all extremities, Skin: warm/dry OBJ DATA Labs CBC & Chem 7: 04/17/22 05:11 04/17/22 05:11 Labs: Abnormal Lab Results 04/17/22 04/17/22 04/16/22 05:11 05:11 05:31 WBC 3.6 L RBC 3.29 L Hgb 8.6 L Hct 27.7 L POC Hct MCH MCHC RDW 24.8 H Plt Count 128 L MPV Immature Gran % (Auto) 1.1 H Immature Gran # Absolute Neutrophils 1.48 L POC Potassium POC Chloride Chloride 112 H 110 H Carbon Dioxide 20 L POC Total CO2 Anion Gap 7.0 L POC BUN BUN 32 H 53 H Creatinine 1.6 H 2.4 H POC Creatinine POC Glucose Calcium 8.5 L 7.8 L POC WB Ioniz Calcium GGT 55 H AST 47 H ALT 51 H Total Protein 5.2 L Albumin 2.9 L Triglycerides 207 H 04/15/22 04/15/22 04/15/22 21:43 20:36 19:05 WBC RBC Hgb Hct POC Hct 26.0 L 25.0 L 30.0 L MCH MCHC RDW Plt Count MPV Immature Gran % (Auto) Immature Gran # Absolute Neutrophils POC Potassium 5.4 H 5.6 H POC Chloride 110 H 109 H Chloride Carbon Dioxide POC Total CO2 18.0 L 17.0 L 19.0 L Anion Gap POC BUN 64 H 66 H 69 H BUN Creatinine POC Creatinine 2.8 H 3.1 H 3.3 H POC Glucose 60 L 67 L Calcium POC WB Ioniz Calcium 1.07 L 1.03 L 1.09 L GGT AST ALT Total Protein Albumin Triglycerides 04/15/22 18:56 WBC RBC Hgb 9.8 L Hct 33.1 L POC Hct MCH 25.8 L MCHC 29.6 L RDW 24.4 H Plt Count MPV 11.0 H Immature Gran % (Auto) 1.1 H Immature Gran # 0.06 H Absolute Neutrophils POC Potassium POC Chloride Chloride Carbon Dioxide POC Total CO2 Anion Gap POC BUN BUN Creatinine POC Creatinine POC Glucose Calcium POC WB Ioniz Calcium GGT AST ALT Total Protein Albumin Triglycerides Meds: Medications Acetaminophen (Acetaminophen 325 Mg Tablet) 650 mg PO Q6HP PRN; Protocol PRN Reason: Per Pain Protocol/Fever > 101 Aspirin (Aspirin 81 Mg Tab.Chew) 81 mg PO DAILY [facility] Atorvastatin Calcium (Atorvastatin 40 Mg Tablet) 40 mg PO QHS [facility] Last Admin: 04/16/22 21:15 Dose: 40 mg Benztropine Mesylate (Benztropine 1 Mg Tablet) 0.5 mg PO BID [facility] Last Admin: 04/16/22 21:15 Dose: 0.5 mg Carvedilol ([facility]ilol 12.5 Mg Tablet) [facility] Last Admin: 04/16/22 16:47 Dose: 12.5 mg Clobetasol Propionate (Clobetasol Propionate 1 Dose Tube) 1 dose TOPICAL QDAY [facility] Diagnostic Test (Pha) (Accu-Chek 1 Each Strip) 1 each FS ACHS [facility] Last Admin: 04/17/22 07:21 Dose: 1 each Divalproex Sodium (Divalproex Sodium 250 Mg Tablet) 1,000 mg PO QHS [facility] Last Admin: 04/16/22 21:15 Dose: 1,000 mg Docusate Sodium (Docusate Sodium 100 Mg Capsule) 100 mg PO BID [facility] Last Admin: 04/16/22 21:15 Dose: Not Given Heparin Sodium (Porcine) (Heparin 5,000 Unit/Ml Vial) 5,000 unit SQ Q12 [facility] Last Admin: 04/16/22 21:16 Dose: 5,000 unit Lactated Ringer's (Lactated Ringers) 1,000 mls @ 75 mls/hr IV .[id number] [facility] Last Admin: 04/17/22 04:05 Dose: Not Given Levothyroxine Sodium (Levothyroxine 25 Mcg Tablet) 25 mcg PO QAMAC [facility] Last Admin: 04/17/22 07:19 Dose: 25 mcg Mirtazapine (Mirtazapine 15 Mg Tablet) 30 mg PO HS [facility] Last Admin: 04/16/22 21:15 Dose: 30 mg Omeprazole (Omeprazole 20 Mg Capsule) 40 mg PO ACB [facility] Last Admin: 04/17/22 07:19 Dose: 40 mg Ondansetron HCl (Ondansetron 4 Mg/2 Ml Vial) 4 mg IV Q6HP PRN PRN Reason: Nausea And Vomiting Ziprasidone Hcl 20 (Mg Capsule) 1 dose PO QHS [facility] Last Admin: 04/17/22 00:58 Dose: Not Given Ziprasidone Hcl 40 (Mg Capsule) 1 dose PO DAILY [facility] Prazosin HCl (Prazosin 1 Mg Capsule) 2 mg PO HS [facility] Last Admin: 04/16/22 21:16 Dose: 2 mg Senna (Sennosides 1 Tablet) 2 tab PO [facility] Last Admin: 04/16/22 21:15 Dose: Not Given Sodium Chloride (0.9 % Sodium Chloride 10 Ml Syringe) 10 ml IV Q8 [facility] Last Admin: 04/17/22 04:33 Dose: Not Given A/P Narrative A/P Narrative: A: *CHRISTIAN on CKD II: likely 2/2 bactrim compounded by ACEI/Diuretics -improving with IVF *Hyperkalemia: resolved *Volume depletion: *HTN/HLD: on BB/ACEI, lasix/aldactone *DM 2: *Cognitive impairment/blindness/microcephaly/developmental disability: *Schizophrenia: *Anemia, likely chronic: *Hypothyroidism: *GERD: P: -IVF finish today -hold ACEI/diuretics, d/c bactrim -cont home BB -monitor UOP -SSI, hold metformin -PT/OT -CM for placement needs -ppx:heparin / Home PPI Time Spent With Patient Time: Total time spent is greater than 50% in coordination of care (as documented) at patient's floor/unit and/or counseling patient: Total time spent with greater than 50% in coordination of care (as documented) at patient's floor/unit and/or counseling patient:: 25 - 35 minutes QUALITY VTE Deep Vein Thrombosis/Pulmonary Embolism Present on Admission: No
[2022-04-17] MEDS: BENZTROPINE 1 MG TABLET PO SCH ×2 (08:21→21:46)
[2022-04-17] MEDS: ASPIRIN 81 MG TAB.CHEW PO SCH (08:21)
[2022-04-17] MEDS: CARVEDILOL 12.5 MG TABLET PO SCH ×2 (08:21→17:58)
[2022-04-17] MEDS: CLOBETASOL PROPIONATE 1 DOSE TUBE TOPICAL SCH (08:22)
[2022-04-17] MEDS: HEPARIN 5,000 UNIT/ML VIAL SQ SCH ×2 (08:22→21:46)
[2022-04-17] MEDS: DOCUSATE SODIUM 100 MG CAPSULE PO SCH ×2 (08:22→21:46)
--- NOTE | 2022-04-17 10:36 | Discharge Summary ---
Discharge Provider Provider IMPORTANT FOLLOW-UP INFORMATION FOR PCP: Patient information: Note initiated : 04/17/22 at 10:35 am Service Date, if different from initiated Date: [] Patient: Antonia Leo 61 y/o F admitted on 04/15/22 for Recheck Labs. Chief Complaint: [] Date of admission: 04/15/22 23:10 Discharge date: 04/18/22 Primary care physician: Marie Mclaughlin Consults: 04/15/22 Consult to Physician [CONS] Stat Comment: Consulting Provider: Nilay Puri Reason For Exam: Physician to Consult COURSE Hospital Course Hospital course: History of present illness: Ms. Leo is a 61 year old F with a complex past medical history significant for microcephaly, blindness, cognitive disability, schizophrenia, DM2, congestive heart failure, hypothyroidism, and hypertension who presents to the hospital with abnormal labs. It was suggested she go to the ER for further management and evaluation. The patient overall is a poor historian and history is mainly obtained secondhand from staff and from chart review. The patient was recently started on Bactrim for suspected UTI, is on lisinopril, and multiple diuretics at home. Unfortunately she has now developed acute kidney injury where she was found to have a creatinine of 2.9. Her baseline creatinine is close to 0.9. The offending agents have been discontinued and held. She has been gently hydrated with IV fluids and the hospitalist service has been asked admit the patient for further management and evaluation of her drug-induced acute kidney injury. 04/17 Has occasional cough from her recent cold otherwise no new complaints overnight events. Started home beta-soren. Creatinine still elevated but improving. Mild transaminitis. 04/18 Patient doing well. Wanting to go home and stable for discharge. A: *CHRISTIAN on CKD II: likely 2/2 bactrim compounded by ACEI/Diuretics *Hyperkalemia: resolved *Volume depletion: *HTN/HLD: on BB/ACEI, lasix/aldactone *DM 2: *Cognitive impairment/blindness/microcephaly/developmental disability: *Schizophrenia: *Anemia, likely chronic: *Hypothyroidism: *GERD: P: -d/c bactrim and aldactone Discharge diagnosis: CHRISTIAN on CKD hyperkalemia and volume depletion Secondary discharge diagnosis: Hypertension diabetes cognitive Britt schizophrenia anemia hypothyroidism GERD Time Spent with Patient Time attestation: Total time spent providing and/or coordinating discharge services: Time spent: Greater than 30 minutes EXAM Constitutional Vitals: Temp Pulse Resp BP Pulse Ox O2 Del Method 97.6 F 89 18 128/80 94 04/17/22 07:17 04/17/22 07:17 04/17/22 07:17 04/17/22 07:17 04/17/22 07:17 04/17/22 07:17 Discharge Data Data Completed and Pending Labs on day of discharge: Labs from last 24 hours 04/17/22 04/17/22 04/16/22 05:11 05:11 14:25 WBC 3.6 L RBC 3.29 L Hgb 8.6 L Hct 27.7 L MCV 84.2 MCH 26.1 MCHC 31.0 RDW 24.8 H Plt Count 128 L MPV 10.3 Immature Gran % (Auto) 1.1 H Neut % (Auto) 40.4 Lymph % (Auto) 45.1 [place] % (Auto) 9.5 Eos % (Auto) 3.6 Baso % (Auto) 0.3 Lymph # (Auto) 1.61 [place] # (Auto) 0.34 Eos # (Auto) 0.13 Baso # (Auto) 0.01 Immature Gran # 0.04 Absolute Neutrophils 1.48 L Sodium 141 Potassium 5.0 Chloride 112 H Carbon Dioxide 22 Anion Gap 7.0 L BUN 32 H Creatinine 1.6 H GFR Calculation 35 Glucose 81 Uric Acid 5.6 Calcium 8.5 L Phosphorus 2.7 Magnesium 1.7 Total Bilirubin 0.2 Direct Bilirubin < 0.2 GGT 55 H AST 47 H ALT 51 H Alkaline Phosphatase 53 Lactate Dehydrogenase 159 Total Protein 5.2 L Albumin 2.9 L Globulin 2.3 Albumin/Globulin Ratio 1.3 Triglycerides 207 H Urine Color Yellow Urine Appearance Clear Urine pH 6.0 Ur Specific [place] 1.020 Urine Protein Negative Urine Glucose (UA) Negative Urine Ketones Negative Urine Occult Blood Negative Urine Nitrate Negative Urine Bilirubin Negative Urine Urobilinogen Normal Ur Leukocyte Esterase Negative Ur Culture Indicated? No Discharge Plan Patient/Caregiver Discharge Instructions Activity: increase activity as tolerated Diet: Regular Diet Prescriptions: Continued omeprazole 20 mg tablet,delayed release (DR/EC) 40 mg PO DAILY Qty: 30 0RF atorvastatin [Lipitor] 40 mg tablet 40 mg PO QHS metformin 750 mg tablet extended release 24 hr 750 mg PO QAM carvedilol [Coreg] 6.25 mg tablet 12.5 mg PO BID Rx Instructions: must administer with a meal/food sennosides [Natural Senna Laxative] 8.6 mg tablet 8.6 mg PO Q2D Rx Instructions: 1 tab every other day at 8am alendronate [Fosamax] 70 mg tablet 70 mg PO QWEEK aspirin 81 mg tablet,delayed release (DR/EC) 81 mg PO QDAY cetirizine [Zyrtec] 10 mg tablet 10 mg PO QDAY cholecalciferol (vitamin D3) 125 mcg (5,000 unit) capsule 125 mcg PO QDAY mirtazapine [Remeron] 30 mg tablet 30 mg PO QDAY clobetasol 0.05 % cream 1 applic topical QDAY Rx Instructions: applies to hands levothyroxine 25 MCG tablet 25 mcg PO DAILY benztropine 1 MG tablet 0.5 mg PO BID Rx Instructions: Take 1/2 tablet per dose ziprasidone HCl 40 MG capsule 40 mg PO DAILY prazosin 2 MG capsule 2 mg PO HS divalproex 250 MG tablet extended release 24 hr 1,000 mg PO QHS ziprasidone HCl 20 mg capsule 20 mg PO QHS Rx Instructions: 1 cap daily at 5pm furosemide [Lasix] 20 mg tablet 20 mg PO QAM Qty: 7 0RF ferrous sulfate 325 mg (65 mg iron) tablet,delayed release (DR/EC) 1 tab PO QDAY colchicine 0.6 mg tablet 1 tab PO QDAY lisinopril 10 mg Tablet 10 mg PO QDAY Discontinued spironolactone 25 mg tablet 0.5 tab PO QDAY Follow Up Plan Follow up with: Marie Mclaughlin ARNP [Primary Care Provider] - Patient Disposition: Home, Self-Care Prognosis: Fair Overall status at discharge: patient is progressing back to baseline Discharge Orders: Discharge Order (Routine); Ordered 04/18/22 Ordered By: Geovany Laurent [facility] VTE Deep Vein Thrombosis/Pulmonary Embolism Present on Admission: No
[2022-04-17] MEDS: SENNOSIDES 1 TABLET PO SCH (21:44)
[2022-04-17] MEDS: PRAZOSIN 1 MG CAPSULE PO SCH (21:45)
[2022-04-17] MEDS: DIVALPROEX SODIUM 250 MG TABLET PO SCH (21:45)
[2022-04-17] MEDS: ATORVASTATIN 40 MG TABLET PO SCH (21:45)
[2022-04-17] MEDS: MIRTAZAPINE 15 MG TABLET PO SCH (21:46)
[2022-04-18] MEDS: 0.9 % SODIUM CHLORIDE 10 ML SYRINGE IV SCH (04:32)
[2022-04-18 06:42] LABS: Basophils # (Auto) 0.02 K/mcL (0.00-0.30); Basophils % (Auto) 0.4 % (0.0-2.0); Eosinophils # (Auto) 0.19 K/mcL (0.00-0.70); Eosinophils % (Auto) 4.2 % (0.0-7.0); Hematocrit 27.9 % (34.1-44.9); Hemoglobin 8.5 g/dL (11.2-15.7); Lymphocytes % (Auto) 46.1 % (15.5-49.0); Mean Cell Volume 84.8 fL (80.0-100.0); Mean Corpuscular HGB Conc 30.5 g/dL (31.0-36.0); Mean Platelet Volume 10.9 fL (7.4-10.4); Monocytes # (Auto) 0.43 K/mcL (0.10-0.90); Monocytes % (Auto) 9.4 % (1.0-12.0); Neutrophils % (Auto) 38.6 % (38.0-78.0); Platelet Count 139 K/mcL (140-440); RBC 3.29 M/mcL (3.59-5.38); WBC 4.6 K/mcL (4.5-11.0)
[2022-04-18 07:14] LABS: ALT/SGPT 56 U/L (<40); AST/SGOT 43 U/L (<32); Albumin 3.3 gm/dL (3.2-5.2); Albumin/Globulin Ratio 1.5 (1.0-2.3); Alkaline Phosphatase 51 U/L (39-117); Bilirubin,Direct < 0.2 mg/dL (0-0.3); Bilirubin,Total 0.2 mg/dL (0.1-1.0); Blood Urea Nitrogen 18 mg/dL (6-20); Calcium 8.9 mg/dL (8.6-10.4); Carbon Dioxide 25 mmol/L (22-30); Chloride 112 mmol/L (96-108); Globulin 2.2 gm/dL (2.2-3.7); Glomerular Filtration Rate 35; Glucose 80 mg/dL (70-105); Lactate Dehydrogenase 165 U/L (135-225); Phosphorous 3.5 mg/dL (2.5-4.5); Triglycerides 182 mg/dL (<150); Uric Acid 5.9 mg/dL (2.5-8.0)
[2022-04-18] MEDS: LEVOTHYROXINE 25 MCG TABLET PO SCH (07:35)
[2022-04-18] MEDS: OMEPRAZOLE 20 MG CAPSULE PO SCH (07:35)
[2022-04-18] MEDS: CARVEDILOL 12.5 MG TABLET PO SCH (07:35)
[2022-04-18] MEDS ORDERED: 0.9 % SODIUM CHLORIDE 250 ML IV ONE (08:33)
[2022-04-18] MEDS: DOCUSATE SODIUM 100 MG CAPSULE PO SCH (08:48)
[2022-04-18] MEDS: ASPIRIN 81 MG TAB.CHEW PO SCH (08:48)
[2022-04-18] MEDS: BENZTROPINE 1 MG TABLET PO SCH (08:48)
[2022-04-18] MEDS: HEPARIN 5,000 UNIT/ML VIAL SQ SCH (08:48)
[2022-04-18] MEDS: CLOBETASOL PROPIONATE 1 DOSE TUBE TOPICAL SCH (08:49)
[2022-04-18] MEDS ORDERED: SENNOSIDES 1 TABLET PO SCH (09:00)
[2022-04-18] MEDS ORDERED: MAGNESIUM SULFATE 8.12 MEQ in DEXTROSE 5% IN WATER 50 ML IV ONE (09:00)
== END 2022-04-18 14:25 | disposition home or self-care (01) | DRG 684 ==
LOC: ED 18:41 → MEDSUR 23:10
PROVIDERS: ADMIT Student in an Organized Health Care Education/Training Program; ATTEND Student in an Organized Health Care Education/Training Program